=== PATIENT | male | born 1995 | race Caucasian/White ===

== ENCOUNTER 2017-01-14 23:15 | Emergency (ER) | payer OTHER ==
[~2017-01-14] VITALS: Ht 180.3 cm; Wt 86.2 kg
[~2017-01-14 23:15] MED LIST: ALEVE220 M1 PO; CYTOMEL50 MCG PO; IBUPROFEN800 MG PO; LEVOXYL100 MCG PO; METHOCARBAMOL500 MG PO; PERCOCET 5-3251 EACH PO
== END 2017-01-15 00:13 | disposition home or self-care (01) ==
LOC: ED 23:15
DX: F19.10 Other psychoactive substance abuse, uncomplicated (principal); F17.200 Nicotine dependence, unspecified, uncomplicated; E03.9 Hypothyroidism, unspecified
CPT/HCPCS: 99283

== ENCOUNTER 2017-07-24 16:49 | Emergency (ER) | payer OTHER ==
[~2017-07-24] VITALS: Ht 180.3 cm; Wt 86.2 kg
[2017-07-24] MEDS ORDERED: KETOROLAC TROME10 MG PO (17:46)
[2017-07-24] MEDS ORDERED: BACTRIM DS TAB1 EACH PO (17:46)
== END 2017-07-24 17:57 | disposition home or self-care (01) ==
LOC: ED 16:49
DX: L03.116 Cellulitis of left lower limb (principal); E03.9 Hypothyroidism, unspecified; F17.200 Nicotine dependence, unspecified, uncomplicated
CPT/HCPCS: 99283

== ENCOUNTER 2017-11-12 10:41 | Emergency (ER) | payer OTHER ==
[~2017-11-12] VITALS: Ht 180.3 cm; Wt 86.2 kg
[~2017-11-12 10:41] MED LIST changes: +BACTRIM DS TAB1 EACH PO; +KETOROLAC TROME10 MG PO
== END 2017-11-12 12:20 | disposition home or self-care (01) ==
LOC: ED 10:41
PROC: 0HQ1XZZ Repair Face Skin, External Approach (ICD-10-PCS; principal; 2017-11-12)
DX: S09.90XA Unspecified injury of head, initial encounter (principal); S01.81XA Laceration without foreign body of other part of head, initial encounter; F17.200 Nicotine dependence, unspecified, uncomplicated; Y04.0XXA Assault by unarmed brawl or fight, initial encounter
CPT/HCPCS: 12011; 70450; 80053; 85025; 90471; 90715; 96374; 96376; 99284; G0480; J2060; J7030

== ENCOUNTER 2017-12-11 21:22 | Emergency (ER) | payer OTHER ==
[~2017-12-11] VITALS: Ht 180.3 cm; Wt 86.2 kg
== END 2017-12-11 22:37 | disposition home or self-care (01) ==
LOC: ED 21:22
DX: S81.811A Laceration without foreign body, right lower leg, initial encounter (principal); W22.8XXA Striking against or struck by other objects, initial encounter; E03.9 Hypothyroidism, unspecified; F41.9 Anxiety disorder, unspecified; F17.200 Nicotine dependence, unspecified, uncomplicated
CPT/HCPCS: 99282

== ENCOUNTER 2020-10-18 19:30 | Emergency (ER) | payer OTHER ==
[~2020-10-18] VITALS: Ht 180.3 cm; Wt 91.0 kg
--- OUTSIDE RECORDS SUMMARY | 2020-10-18 19:36 | XMS ---
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 [place] has no Care Guidelines for this patient. Maurice VISIT COUNT (12 MO.) 1 [facility] Guerin TOTAL 1 NOTE: Visits indicate total known visits. ED/C VISIT TRACKING (12 MO.) 10/18/2020 19:30 [facility] [place] TYPE: Emergency COMPLAINT: - POSSIBLE DEHYDRATION INPATIENT VISIT TRACKING (12 MO.) No inpatient visits to display in this time frame [id number]
[2020-10-18] MEDS ORDERED: SEROQUEL300 MG PO (19:54)
[2020-10-18] MEDS ORDERED: SERTRALINE HCL100 MG PO (19:55)
== END 2020-10-18 23:04 | disposition home or self-care (01) ==
LOC: ED 19:30
DX: T67.5XXA Heat exhaustion, unspecified, initial encounter (principal); R11.2 Nausea with vomiting, unspecified; Z20.822 Contact with and (suspected) exposure to COVID-19; E03.9 Hypothyroidism, unspecified; F17.200 Nicotine dependence, unspecified, uncomplicated; Z79.899 Other long term (current) drug therapy
CPT/HCPCS: 80053; 83735; 85025; 96374; 96376; 99284-25; C9803; J2405; J7030; U0003

== ENCOUNTER 2021-08-26 22:25 | Emergency (ER) | payer OTHER ==
[~2021-08-26] VITALS: Ht 180.3 cm; Wt 104.3 kg
[~2021-08-26 22:25] MED LIST changes: +SEROQUEL300 MG PO; +SERTRALINE HCL100 MG PO
--- OUTSIDE RECORDS SUMMARY | 2021-08-26 22:28 | XMS ---
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 [place] has no Care Guidelines for this patient. EAna VISIT COUNT (12 MO.) 2 LUIS Guerin TOTAL 2 NOTE: Visits indicate total known visits. ED/C VISIT TRACKING (12 MO.) 08/26/2021 22:26 [facility] [place] TYPE: Emergency COMPLAINT: - HEADACHE 10/18/2020 19:30 [facility] [place] TYPE: Emergency COMPLAINT: - POSSIBLE DEHYDRATION DIAGNOSES: - Other intermediate frame tender (current) drug therapy - Nicotine dependence, unspecified, uncomplicated - Hypothyroidism, unspecified - Heat exhaustion, unspecified, initial encounter - Nausea with vomiting, unspecified INPATIENT VISIT TRACKING (12 MO.) No inpatient visits to display in this time frame [id number]
[2021-08-27] MEDS ORDERED: PENICILLIN V P500 MG PO (01:18)
== END 2021-08-27 01:41 | disposition home or self-care (01) ==
LOC: ED 22:25
DX: R51.9 Headache, unspecified (principal); K08.89 Other specified disorders of teeth and supporting structures; E03.9 Hypothyroidism, unspecified; F17.200 Nicotine dependence, unspecified, uncomplicated; Z79.899 Other long term (current) drug therapy
CPT/HCPCS: 70450; 99284-25

== ENCOUNTER 2022-10-13 00:02 | Emergency (ER) | payer OTHER ==
[~2022-10-13] VITALS: Ht 180.3 cm; Wt 89.4 kg
[~2022-10-13 00:02] MED LIST changes: +PENICILLIN V P500 MG PO
--- OUTSIDE RECORDS SUMMARY | 2022-10-13 00:06 | XMS ---
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 EAna VISIT COUNT (12 MO.) [address] [facility] TOTAL 1 NOTE: Visits indicate total known visits. ED/UCC VISIT TRACKING (12 MO.) 10/13/2022 00:04 [facility] [place] TYPE: Emergency COMPLAINT: - MEDICATION ISSUE INPATIENT VISIT TRACKING (12 MO.) No inpatient visits to display in this time frame [id number]
[2022-10-13] MEDS ORDERED: PRAZOSIN HCL5 MG PO (00:39)
[2022-10-13] MEDS ORDERED: LEVOTHYROXINE75 MCG PO (00:39)
[2022-10-13] MEDS ORDERED: TRAZODONE HCL100 MG PO (00:39)
[2022-10-13] MEDS ORDERED: BUPRENO-NALOX1 EACH SL (00:39)
[2022-10-13] MEDS ORDERED: QUETIAPINE FUM400 MG PO (00:40)
[2022-10-13 02:40] VITALS: BP 109/86
--- NOTE | 2022-10-13 18:08 | EKG ---
[facility] [address] [place], [place] [address] Signed Normal sinus rhythm Normal ECG No previous ECGs available Confirmed by JAMES MORALES MD ([id number]) on 10/13/2022 6:08:20 PM Electronically Signed By: JAMES MORALES MD 10/13/22 1808 PATIENT NAME: LUZ SHEPPARD Electrocardiogram DATE OF : 89 PHYSICIAN: JAMES MORALES MD REPORT #: [id number] REPORT IS CONFIDENTIAL AND NOT TO BE RELEASED WITHOUT AUTHORIZATION
== END 2022-10-13 02:43 | disposition home or self-care (01) ==
LOC: ED 00:02
DX: R00.2 Palpitations (principal); F17.200 Nicotine dependence, unspecified, uncomplicated; Z79.890 Hormone replacement therapy; Z79.899 Other long term (current) drug therapy
CPT/HCPCS: 36415; 80053; 81003; 84439; 84443; 84484; 85025; 93005; 93010; 99285-25; J7121

== ENCOUNTER 2023-09-13 12:02 | Emergency (ER) | payer OTHER ==
[~2023-09-13] VITALS: Ht 180.3 cm; Wt 86.1 kg
[~2023-09-13 12:02] MED LIST changes: +BUPRENO-NALOX1 EACH SL; +LEVOTHYROXINE75 MCG PO; +PRAZOSIN HCL5 MG PO; +QUETIAPINE FUM400 MG PO; +TRAZODONE HCL100 MG PO
--- OUTSIDE RECORDS SUMMARY | 2023-09-13 12:10 | XMS ---
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 EAna VISIT COUNT (12 MO.) 2 LUIS Guerin TOTAL 2 NOTE: Visits indicate total known visits. ED/UCC VISIT TRACKING (12 MO.) 09/13/2023 12:02 [facility] [place] TYPE: Emergency COMPLAINT: - GENITAL IRRITATION 10/13/2022 00:04 [facility] [place] TYPE: Emergency COMPLAINT: - MEDICATION ISSUE DIAGNOSES: - Hormone replacement therapy - Nicotine dependence, unspecified, uncomplicated - Other longterm (current) drug therapy - Palpitations INPATIENT VISIT TRACKING (12 MO.) No inpatient visits to display in this time frame [id number]
[2023-09-13 12:56] VITALS: BP 135/81
== END 2023-09-13 12:56 | disposition home or self-care (01) ==
LOC: ED 12:02
DX: R10.31 Right lower quadrant pain (principal); F17.200 Nicotine dependence, unspecified, uncomplicated; Z79.890 Hormone replacement therapy; Z79.899 Other long term (current) drug therapy
CPT/HCPCS: 99283

== ENCOUNTER 2023-09-20 10:39 | Emergency (ER) | payer OTHER ==
[~2023-09-20] VITALS: Ht 180.3 cm; Wt 89.3 kg
--- OUTSIDE RECORDS SUMMARY | 2023-09-20 10:48 | XMS ---
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 Maurice VISIT COUNT (12 MO.) 3 [facility] TOTAL 3 NOTE: Visits indicate total known visits. 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
[2023-09-20 11:37] VITALS: BP 126/79
== END 2023-09-20 11:36 | disposition home or self-care (01) ==
LOC: ED 10:39
DX: N50.82 Scrotal pain (principal); E03.9 Hypothyroidism, unspecified; F41.9 Anxiety disorder, unspecified; F17.200 Nicotine dependence, unspecified, uncomplicated; Z79.890 Hormone replacement therapy; Z79.899 Other long term (current) drug therapy; Z86.19 Personal history of other infectious and parasitic diseases
CPT/HCPCS: 99283

== ENCOUNTER 2024-12-28 11:36 | Emergency (ER) | payer OTHER ==
[~2024-12-28] VITALS: Ht 180.3 cm; Wt 90.9 kg
--- OUTSIDE RECORDS SUMMARY | 2024-12-28 11:43 | XMS ---
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 Maurice VISIT COUNT (12 MO.) 1 [facility] Guerin TOTAL 1 NOTE: Visits indicate total known visits. ED/UCC VISIT TRACKING (12 MO.) 12/28/2024 11:[address] [facility] [place] TYPE: Emergency COMPLAINT: - GENITAL PROBLEM INPATIENT VISIT TRACKING (12 MO.) No inpatient visits to display in this time frame [id number]
[2024-12-28] MEDS ORDERED: QUETIAPINE FUM400 M1 PO (11:54)
[2024-12-28] MEDS ORDERED: LEVOTHYROXINE125 MCG PO (11:54)
[2024-12-28] MEDS ORDERED: QUETIAPINE FUM300 MG PO (11:54)
[2024-12-28 13:05] LABS: BLOOD/HGB, URINE NEGATIVE (Negative); KETONE, URINE NEGATIVE (Negative); LEUK ESTERASE, URINE NEGATIVE (negative); NITRITE, URINE NEGATIVE (negative)
[2024-12-28 13:22] VITALS: BP 133/96
== END 2024-12-28 13:22 | disposition home or self-care (01) ==
LOC: ED 11:36
PROVIDERS: Emergency Medicine
DX: R30.0 Dysuria (principal); E03.9 Hypothyroidism, unspecified; F17.200 Nicotine dependence, unspecified, uncomplicated; Z79.890 Hormone replacement therapy; Z79.899 Other long term (current) drug therapy
CPT/HCPCS: 81003; 99283